=== PATIENT | female | born 1945 | race African-American/Black ===

== ENCOUNTER 2016-11-26 14:11 | Inpatient (IN) | payer OTHER ==
[~2016-11-26] VITALS: Ht 172.7 cm; Wt 79.4 kg
--- NOTE | ~2016-11-26 | P ---
[facility] [place] [address] PROCEDURE REPORT Name: ELI DAVIS Sonny Room #: 428-P [facility] ..#: [id number] Admission: 11/26/16 Attend Phys: Josey Doll MD Discharge: 11/28/16 Date of : 47 Report #: [id number] THIS REPORT FOR: //name// CC: Estephania Dubon DO Josey Doll MD DATE OF SERVICE: 11/26/2016 PROCEDURE PERFORMED: Upper endoscopy and PEG tube removal. HISTORY OF PRESENT ILLNESS: The patient is a 71-year-old female with a history of MS who currently has a PEG tube in place that has not been flushing correctly per her durable power of utility aide. She also had a diverting colostomy apparently for previous sacral decubitus ulcer. I spoke with the durable power of utility aide over the phone and she states that the patient has been using the PEG for nutrition, but has also been taking some nutrition by mouth; however, the PEG has not been working correctly, she believes it may be clogged. Plan is for EGD with possible PEG tube removal and replacement. DESCRIPTION OF PROCEDURE: The risks and benefits of the procedure were explained to the patient as well as her durable power of utility aide, those risks including but not limited to bleeding, perforation, the risk of sedation. They understood these risks and gave informed consent. The patient was given propofol per anesthesia. Next, using a standard Stkr.itinon upper endoscope, the scope was placed in the patient's mouth and advanced under direct vision through the esophagus, stomach and into the second portion of the duodenum. The esophagus was normal throughout. The GE junction was normal. Upon entering the stomach, there was no PEG tube bumper noted to be in place. This is despite PEG being noted exceeding the anterior abdominal wall. I could see where the PEG tube fistula was, it appears to be healing. There is no open area. This could be consistent likely with a buried bumper syndrome. The remaining gastric mucosa was normal. The pylorus was normal and patent. The duodenal bulb, first and second portion were normal. The scope was then brought back up into the patient's stomach and I removed the PEG through the anterior abdominal wall. There was some purulent type of drainage, no obvious fluctuance or abscess was noted again. There was no communication between the outside fistula tract with the gastric lumen endoscopically, again consistent with a buried bumper. At this point, the scope was then withdrawn and the procedure terminated. The patient tolerated the procedure well. IMPRESSION: 1. Buried bumper syndrome as described above, I explained to the patient and the durable power of utility aide that we would need to admit the patient, obtain a CT scan of the abdomen and pelvis to rule out the possibility of an abscess and [address] [address] PROCEDURE REPORT Name: SUSANELI A Room #: 428-P [facility] IN M.R.#: [id number] Admission: 11/26/16 Attend Phys: Josey Doll MD Discharge: 11/28/16 Date of : 47 Report #: [id number] we will also consult general surgery for further evaluation. I explained we will allow that site to heal and then later may need to replace with a new PEG tube at that time. Thank you for allowing me to participate in her care. <ELECTRONICALLY SIGNED> By: Darrion Mahmood MD 12/05/16 0824 0813 1125 Darrion Mahmood MD /nt
--- NOTE | ~2016-11-26 | P ---
[facility] [place] [address] PROCEDURE REPORT Name: SUSANELI Sonny Room #: 428-P [facility] IN ..#: [id number] Admission: 11/26/16 Attend Phys: Josey Doll MD Discharge: 11/28/16 Date of : 49 Report #: [id number] THIS REPORT FOR: //name// CC: VALERI Umana MD DATE OF SERVICE: 11/28/2016 PROCEDURE PERFORMED: Flexible sigmoidoscopy with biopsies. HISTORY OF PRESENT ILLNESS: The patient is a 71-year-old female who has a history of multiple sclerosis and actually had a diverting colostomy and PEG tube in place. Recently the PEG tube has not been flushing correctly per the durable power of litigation attorney, and therefore, plan is for upper endoscopy with possible PEG tube removal and replacement. I performed an upper endoscopy on 11/26/2016. Upon entering the stomach, it was obvious the PEG tube bumper was not within the lumen of the stomach and had migrated into the subcutaneous area consistent with a buried bumper. It appears that the fistula site has been healing well from the gastric lumen side. At that point, I pulled the PEG tube through the remaining fistula. There was some purulent drainage. There was no obvious significant fluctuance around the site. I discussed the findings with family and the patient and explained that she would need to be hospitalized and the next step was to obtain a surgery consultation as well as a CT scan of the abdomen, which was performed on 11/26/2016 and it showed marked interval worsening of the appearance of the rectosigmoid colon with marked thickening and irregular nodularity consistent with malignancy. The adjacent perirectal lymphadenopathy is noted with 2 hepatic masses consistent with metastatic disease. Abnormal appearance of the PEG tube site was noted with marginal subcutaneous fat stranding and adjacent skin thickening likely related to infection and cellulitis. A 2.5 cm gallstone was also noted. An intra-abdominal hernia was noted as well. Plan is for flexible sigmoidoscopy. DESCRIPTION OF PROCEDURE: The risks and benefits of the procedure were explained to the patient and her durable power of litigation attorney. Those risks including but not limited to bleeding, perforation, the risk of sedation. They understood these risks and gave informed consent. The patient was given propofol per anesthesia. Next, a digital rectal exam was performed, which was grossly abnormal. There was hard, firm mass noted in the distal rectum and into the anal canal. Next, using a standard Fujinon colonoscope, the scope was placed in the patient's rectum. There was a large malignant appearing ulcerative mass throughout the anal canal and distal rectum. I was not able to find the lumen. I did not want to push the scope any further. I was only able to advance the scope approximately 5 cm and 10 cm, multiple biopsies were obtained. This was consistent with malignancy. At this point, the scope was [address] [address] PROCEDURE REPORT Name: ELI DAVIS Room #: 428-P DIS IN M.R.#: [id number] Admission: 11/26/16 Attend Phys: Josey Doll MD Discharge: 11/28/16 Date of : 49 Report #: [id number] then withdrawn and I did pass the scope through the colostomy in the anterior abdominal wall. I was able to advance the scope to what appears about the transverse colon and there was a large amount of solid stool at this point. Therefore, I did not proceed any further. The scope was then withdrawn. A few diverticula were noted in the remaining descending colon, but otherwise normal. The scope was then withdrawn and the procedure terminated. The patient tolerated the procedure well. IMPRESSION: 1. 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 Biopsies were obtained. 2. Colostomy noted. Area of the transverse to descending colon was essentially normal other than a few diverticula. RECOMMENDATIONS: 1. Await biopsy results. 2. The patient apparently has an appointment already scheduled with Dr. Castle of colorectal surgery next week. We will await his evaluation and pathology report. Thank you for allowing me to participate in her care. <ELECTRONICALLY SIGNED> By: Darrion Mahmood MD 12/03/16 0757 1404 0011 Darrion Mahmood MD /nt
--- NOTE | ~2016-11-26 | S ---
[facility] [place] [address] SURGICAL PATH RPT PROCEDURE Name: PRISCILLA DAVIS Room #: 428-P [facility] IN M.R.#: [id number] Admission: 11/26/16 Date of : 49 Discharge: 11/28/16 Report #: [id number] Path Case #: [id number] PATHOLOGY REPORT COLLECTION DATE: 11/28/2016 RECEIVED DATE: 11/28/2016 SUBMITTING PHYS: Dr. Darrion Mahmood OTHER PHYS: Dr. Josey Dubon ADDENDUM REPORT (Order Date: 12/02/2016 11:02) ADDENDUM COMMENT: MSI (mismatch repair protein) immunohistochemical staining was performed on specimen #[id number] [facility]. Specimen: Formalin fixed paraffin embedded tissue Specimen ID: [id number] Reason for testing: To evaluate for evidence of defective mismatch repair proteins. Method: Immunohistochemical staining for the presence or absence of protein expression of one or more of the following MMR protein markers: MLH1, MSH2, MSH6 and PMS2. Tumor type: colonic adenocarcinoma Results: MLH1 - Preserved MSH2 - Preserved MSH6 - Preserved PMS2 - Preserved Mismatch Repair Status: MMR Proficient (MMR-P) Interpretation: (MMR-P) All four MMR proteins are preserved within tumor cells. This suggests the presence of normal DNA mismatch repair function within the tumor and an observable defect in mismatch repair is not identified. The likelihood that this patient has an inherited germline mutation syndrome due to defective mismatch repair is reduced but not totally eliminated. If the patient has a strong personal or family history of HPNCC/Morfin syndrome related cancers (colorectal, endometrial, gastric, ovarian, pancreatic, ureter/renal pelvis, biliary tract, brain, small bowel and [place]-Magdiel syndrome), consider MSI testing by PCR methodology. Suggest clinical correlation and follow up. These test results are designed for screening purposes only and are useful tools in identifying cancer patients that are more likely to have Morfin Syndrome related diagnoses. Tests should be interpreted in the context of clinical findings, family history and laboratory data. Abnormal IHC results for MMR protein expression are not considered diagnostic for Morfin Syndrome. Professional services performed by [employer], [employer] [place] [address] SURGICAL PATH RPT PROCEDURE Name: SUSANPRISCILLA A Room #: 428-P [facility] IN [facility]#: [id number] Admission: 11/26/16 Date of : 49 Discharge: 11/28/16 Report #: [id number] Path Case #: [id number] [place] [address]. ELECTRONICALLY SIGNED BY: Zion Joya M.D. DATE/TIME:12/02/2016 11:23 SPECIMEN(S) RECEIVED: A.Bxs rectal mass * * * * * * * * * * * * FINAL DIAGNOSIS: Colonic mucosa "rectal mass biopsy": - INVASIVE ULCERATED MODERATELY DIFFERENTIATED ADENOCARCINOMA. COMMENT: This case is also reviewed by Dr. Kirsten Castillo. This case was also discussed with Dr. Darrion Mahmood's on 12/01/16 at 1pm. MSI testing ordered on block A1. Once those are available additional report will follow. (SHA:abhijeet; d/t: 12/01/2016) PATHOLOGIST: Zion Joya M.D. REPORT ELECTRONICALLY SIGNED BY: Zion Joya M.D. DATE/TIME: 12/01/2016 13:09 * * * * * * * * * * * * GROSS PATHOLOGY: Received in formalin labeled "Priscilla Davis, biopsy rectal mass," are seven segments of avitia soft tissue measuring 1.0 x 0.9 x 0.1 cm in aggregate dimensions and ranging from 0.2 to 0.4 cm in maximum dimension. The specimen is submitted entirely in cassette A1. (CAA; 11/28/2016) CLINICAL HISTORY: Abnormal CT INITIAL CPT CODE(S): A; 85344, 87614, 76504, 10537, 23328 Professional services performed by [facility] [address], [place] [address] Technical services performed by [facility] at [address] [place] [address], [address] [address]. [facility] [address] [place] [address] SURGICAL PATH RPT PROCEDURE Name: PRISCILLA DAVIS Sonny Room #: 428-P [facility] IN M.R.#: [id number] Admission: 11/26/16 Date of : 49 Discharge: 11/28/16 Report #: [id number] Path Case #: [id number] [facility] [address] [place] [address] PHONE: [phone] DIRECTOR: Familia Grey M.D. * * * END OF REPORT * * *
[~2016-11-26 14:11] MED LIST changes: -AUGMENTIN 875875 MG PO; -COMPAZINE25 MG RECTAL; -PROBIOTIC1 EAC1 PO; -PROTONIX40 M1 PO; -TRAZODONE HCL50 MG PO
[2016-11-26 15:22] VITALS: BP 151/72
[2016-11-26] MEDS ORDERED: ONDANSETRON HCL4 M2 PO (16:05)
[2016-11-26] MEDS ORDERED: AMANTADINE100 M1 PO (16:06)
[2016-11-26] MEDS ORDERED: PROTONIX40 M1 PO (16:07)
[2016-11-26] MEDS ORDERED: COMPAZINE25 MG RECTAL (16:08)
[2016-11-26] MEDS ORDERED: TRAZODONE HCL50 MG PO (16:09)
[2016-11-26] MEDS ORDERED: APAP500 PO (16:10)
[2016-11-26 18:27] LABS: URINE BLOOD 3+ (Negative); URINE COLOR RED; URINE GLUCOSE-RANDOM* NEGATIVE (Negative); URINE KETONES TRACE (Negative); URINE LEUKOCYTES-REFLEX 3+ (Negative); URINE PROTEIN (DIPSTICK) 3+ (Negative)
[2016-11-26 18:44] LABS: ICTOTEST (BILI CONFIRMATORY) Negative (Negative); URINE BILIRUBIN NEGATIVE (Negative)
[2016-11-26 18:46] LABS: CASTS None Seen /LPF (None Seen); CRYSTALS None Seen /LPF (None Seen); SQUAMOUS 4-10 Moderate /LPF (0-3); URINE RBC >20 Many /HPF (0-2); URINE WBC-REFLEX >25 Many /HPF (0-5)
[2016-11-26 20:00] VITALS: BP 182/98
[2016-11-27 04:30] VITALS: BP 140/66
[2016-11-27 06:56] LABS: ABSOLUTE NEUTROPHILS 6.1 thou/uL (1.4-8.2); BASOPHILS 0.9 % (0.0-2.0); EOSINOPHILS 2.8 % (0.0-3.0); HEMATOCRIT 32.4 % (37.0-47.0); HEMOGLOBIN 10.2 gm/dL (12.0-15.0); LYMPHOCYTES 23.7 % (24.0-44.0); MCH 20.8 pg (26.0-34.0); MCHC 31.5 % (28.0-37.0); MCV 65.8 fL (80.0-100.0); MONOCYTES 8.6 % (1.0-8.0); PLATELET COUNT 263 thou/uL (150-400); RBC 4.92 mil/uL (4.20-5.00); RDW 16.7 % (10.5-14.5); WBC 9.4 thou/uL (4.0-11.0)
[2016-11-27 06:59] LABS: CALCIUM 8.6 mg/dL (8.5-10.1); CREATININE 0.7 mg/dL (0.6-1.3); POTASSIUM 3.5 mmol/L (3.5-5.1)
[2016-11-27 07:13] LABS: MANUAL DIFF NO
[2016-11-27 07:33] VITALS: BP 142/73
[2016-11-27 08:17] LABS: ANISOCYTOSIS 1+; HYPOCHROMASIA 2+; MICROCYTES 2+; PLATELET ESTIMATE NORMAL
[2016-11-27 08:19] LABS: OVALOCYTES 1+; POIKILOCYTOSIS 1+
[2016-11-27 08:20] LABS: LARGE PLATELETS OCCASIONAL
[2016-11-27 15:33] VITALS: BP 148/67
[2016-11-27 20:00] VITALS: BP 151/68
[2016-11-28 01:08] LABS: FERRITIN 58 ng/mL (15-150)
[2016-11-28 04:00] VITALS: BP 136/71
[2016-11-28 05:16] LABS: HEMATOCRIT 32.4 % (37.0-47.0); MCH 20.7 pg (26.0-34.0); MCHC 30.8 % (28.0-37.0); MCV 67.1 fL (80.0-100.0); RBC 4.83 mil/uL (4.20-5.00)
[2016-11-28 05:52] LABS: CALCIUM 8.6 mg/dL (8.5-10.1); CREATININE 0.6 mg/dL (0.6-1.3); POTASSIUM 3.6 mmol/L (3.5-5.1)
[2016-11-28 08:36] VITALS: BP 135/78
[2016-11-28 12:09] LABS: % SATURATION 15 % (15-55); IRON 36 ug/dL (27-139); TIBC 233 ug/dL (250-450); UIBC 197 ug/dL (118-369)
[2016-11-28] MEDS ORDERED: AUGMENTIN 875875 MG PO (12:33)
[2016-11-28] MEDS ORDERED: PROBIOTIC1 EAC1 PO (12:33)
== END 2016-11-28 18:43 | DRG 394 ==
LOC: 4E 14:11
PROVIDERS: Family Medicine; Nurse Practitioner Adult Health
PROC: 0D20XUZ Change Feeding Device in Upper Intestinal Tract, External Approach (ICD-10-PCS; principal; 2016-11-28)
PROC: 0DBP8ZX Excision of Rectum, Via Natural or Artificial Opening Endoscopic, Diagnostic (ICD-10-PCS; principal; 2016-11-28)
DX: K94.23 Gastrostomy malfunction (principal); N39.0 Urinary tract infection, site not specified; E11.9 Type 2 diabetes mellitus without complications; G35 Multiple sclerosis; I10 Essential (primary) hypertension; K21.9 Gastro-esophageal reflux disease without esophagitis; K59.09 Other constipation; F31.9 Bipolar disorder, unspecified; M81.0 Age-related osteoporosis without current pathological fracture; K62.9 Disease of anus and rectum, unspecified; E78.5 Hyperlipidemia, unspecified; G47.00 Insomnia, unspecified; D50.9 Iron deficiency anemia, unspecified; M19.90 Unspecified osteoarthritis, unspecified site; N32.9 Bladder disorder, unspecified; Z79.4 Long term (current) use of insulin; Z88.6 Allergy status to analgesic agent; Z88.1 Allergy status to other antibiotic agents; Z90.710 Acquired absence of both cervix and uterus
CPT/HCPCS: 10783; 62110; 70005

== ENCOUNTER → 2016-11-26 | Outpatient (CLI) | payer OTHER ==
[~2016-11-26] MED LIST: ADULT TUSS100 MG/5 M PO; AMANTADINE 100100 MG PO; AMANTADINE100 M1 PO; AMLODIPINE BESYL5 MG PO; APAP500 PO; ATIVAN0.5 MG PO; AUGMENTIN 875875 MG PO; BENZONATATE200 MG PO; BISACODYL SUPP10 MG RECTAL; CEFTIN 250 MG250 MG PO; CHLOROPHYLL 3 MG3 MG PO; CIPRO500 MG PO; COMPAZINE25 MG RECTAL; DIPHENHYDRAM50 MG/M2 IV PUSH; DOCUSATE SODIU100 MG PO; ENDOCET 5-3251 EACH PO; FENTANYL PA50 MCG/HR TRANSDERM; GLUCERNA 1.21500 ML PO; GLYCOLAX POWDER17 G1 PO; HYDROCHLOROTHIA25 M2 PO; LIORESAL 10 MG10 MG PO; LISINOPRIL20 MG PO; LUNESTA2 MG PO; MAGNESIUM CITR296 ML PO; MELATONIN3 MG PO; MIRALAX17 GM PO; MUCINEX TA600 MG/TA1 PO; MULTI VITAMIN1 EACH PO; NORCO 5-325 TA1 EACH PO; NORVASC10 MG PO; NORVASC5 M1 PO; NOVOLOG100 UNIT/1 SUBQ; OMEPRAZOLE 20 M20 M1 PO; ONDANSETRON HCL4 M2 PO; OPANA ER10 M1 PO; OXCARBAZEPINE300 M1 PO; OXYBUTYNIN 5 MG5 M2 PO; POTASSIUM20 PO; PRAVACHOL 20 MG20 M1 PO; PRILOSEC 20 MG20 MG PO; PROBIOTIC1 EAC1 PO; PROSOURCE PLUS946 ML PO; PROTONIX40 M1 PO; RESTORIL15 MG PO; TOVIAZ4 M1 PO; TRAMADOL 50 MG50 MG PO; TRAZODONE HCL50 MG PO; TYLENOL325 MG PO; VITAMIN D1000 UNI1 PO; VITAMIN D3400 UNIT PO; VITAMINC500 PO; [UNRECOGNIZED DRUG - OTHER] PO
--- NOTE | ~2016-11-26 | HC ---
[facility] [place] [address] CONSULTATION Name: SUSANELI A Room #: REG [facility]#: [id number] Admission: 11/26/16 Attend Phys: Darrion Rankin Discharge: Date of : 49 Report #: [id number] THIS REPORT FOR: //name// CC: Darrion Dubon DATE OF SERVICE: 11/26/2016 CHIEF COMPLAINT: Displaced PEG tube. HISTORY OF PRESENT ILLNESS: The patient is a 71-year-old female with extensive past medical history of multiple sclerosis, diabetes mellitus, bipolar disorder, chronic constipation and other medical issues. She was seen by myself approximately one year ago in consultation as an inpatient at [facility] regarding a large sacral pressure ulcer. She underwent operative debridement of this wound by myself as well as PEG placement and loop transverse colostomy. Since that time, the patient was seen and evaluated in the emergency department on several occasions, although general surgery was not called unfortunately. She has had recurrent urinary tract infections during that time. She has been a intermediate facility resident with primary care physician, Dr. Dubon. In 05/2016, she had undergone a CT scan of the abdomen and pelvis without contrast that showed soft tissue prominence in the rectal region. There was also noted to be a large amount of stool in the proximal colon as well as a large umbilical hernia. Per verbal report, the patient was evaluated by gynecology at some point recently for presumed vaginal bleeding. Upon their evaluation, they felt that the bleeding was likely from the rectum, and therefore, she was referred to colorectal surgery associates. She had an upcoming appointment actually on 12/04 with colorectal surgery. More recently, over the past 1-2 weeks, her PEG tube was noted to be poorly functional. Her nocturnal tube feeds had been held over the past 10 days as she had complained of some pain at the PEG tube site. Although the patient has been tolerating regular diet well, she has been supplemented with nocturnal tube feeds. The patient was brought as an outpatient yesterday for EGD with evaluation of the PEG tube by gastroenterology. Upon EGD, it was noted that the PEG tube had been pulled out of the stomach and the gastric side of the tract had closed off completely as visualized from within the gastric lumen. She, therefore, was admitted to internal medicine service. The PEG tube had been discontinued at the time of that EGD. CT scan of the abdomen and pelvis with oral and IV contrast was obtained to evaluate for potential gastric leak or abscess from the tube feeds which apparently had been extra gastric. CT scan showed that the PEG tube had been removed. It did show subcutaneous fat stranding around the soft tissue overlying the stomach. There was thickening and inflammation in the skin and soft tissue, consistent with cellulitis and infection. No obvious was identified. Radiologic read describes a large ventral hernia. However, this is her transverse loop colostomy which may have some parastomal herniation. No incarceration or [address] [address] CONSULTATION Name: ELI DAVIS Room #: REG [facility]#: [id number] Admission: 11/26/16 Attend Phys: Darrion Rankin Discharge: Date of : 49 Report #: [id number] obstruction is noted, however. Thickening and irregularity of the rectosigmoid was noted with multiple enlarged perirectal lymph nodes measuring up to 1.6 cm in diameter. These appear increased from prior study. There was also noted to be circumferential bladder wall thickening with irregularity and nodularity as well as focal lobular hyperdensity along the right posterior bladder wall, measuring 12 x 17 x 18 mm. There is also a 3-mm calcification along that right posterior lateral bladder wall. No obvious ureteral obstruction was noted. Post-hysterectomy changes were noted. There were 2 low-attenuating lesions within the right and left liver, measuring approximately 1 cm in diameter, concerning for metastatic process; large gallstone measuring 2.5 cm. No obvious cholecystitis. At this time, the patient reports that the pain at her PEG tube site is significantly improved. She is a difficult historian and unfortunately, her DPOA is not present today to provide further history. She has been tolerating regular diet while inpatient. She has been afebrile. Also, of note, her urinalysis yesterday showed positive nitrite, 3+ leukocytes, 4-10 squamous cells, greater than 25 WBCs and greater than 30 bacteria. Her white blood cell count was 12.1 thousand, hemoglobin 11.3 and platelets of 267,000 upon admission yesterday. White count is normalized today at 9.4. PAST MEDICAL HISTORY: Positive for multiple sclerosis, diabetes mellitus, hypertension, previous sacral decubitus ulcer which has healed, osteoporosis, gastroesophageal reflux disease, frequent urinary tract infections, chronic constipation, overactive bladder, vitamin D deficiency and chronic insomnia. PAST SURGICAL HISTORY: Hysterectomy, diverting loop colostomy in 12/2015, PEG tube placed in 12/2015 and hernia repair of some type is listed in her history, although the exact location and type of this hernia repair is unclear. ALLERGIES: Include MORPHINE and KEFLEX. CURRENT MEDICATIONS: Include melatonin, amlodipine, baclofen, tramadol, Glucerna tube feeds at night, fentanyl patch, multivitamin, calcium, vitamin D supplement, acetaminophen, trazodone, prochlorperazine, pantoprazole, Amantadine and Zofran. SOCIAL HISTORY: Negative for tobacco, ETOH or drug use. The patient lives in a intermediate facility, does have a DPOA given her chronic debility and bipolar disorder. She is unable to make medical decisions on her own. REVIEW OF SYSTEMS: GENERAL: Negative for fevers or chills. No decreased appetite. HEENT: No headache or epistaxis. CARDIOVASCULAR: No chest pain or palpitations. PULMONARY: No productive cough. No shortness of breath. GASTROINTESTINAL: Positive for abdominal pain at the PEG site as well as possible blood per rectum. Colostomy noted to be functional, without obvious [address] [address] CONSULTATION Name: SUSANELI A Room #: REG [facility]#: [id number] Admission: 11/26/16 Attend Phys: Darrion Rankin Discharge: Date of : 49 Report #: [id number] constipation. MUSCULOSKELETAL: No back pain. No joint swelling. NEUROLOGIC: No focal tingling or numbness. CUTANEOUS: Healed sacral ulcer. No new rashes or lesions. ENDOCRINE: Positive for diabetes mellitus. No heat or cold intolerance. HEMATOLOGIC: No spontaneous epistaxis or easy bruising. PHYSICAL EXAMINATION: GENERAL: On exam, the patient is awake and in no acute distress. She is eating breakfast on this examination and tolerating this well. She is in good spirits. She reports that her pain is much improved now that the PEG tube has been removed. HEENT: Head is atraumatic and normocephalic. Pupils are equally round and reactive to light. Oral cavity shows mucosae are pink and moist. No icterus is appreciated. NECK: Supple, without lymphadenopathy. LUNGS: Clear to auscultation. HEART: Regular, without murmur. ABDOMEN: Soft and minimally tender to palpation in the left upper quadrant at the previous PEG site. This has been removed and is covered with a dressing. No active drainage is expressible from the site. No crepitus is appreciated in the midline. Her diverting loop colostomy is functional. There is some mild prolapse which is easily reducible. Stoma is patent. Abdomen shows no rebound or guarding. No peritoneal signs are appreciated. EXTREMITIES: Without clubbing, cyanosis or edema. Normal mood and affect is noted. No focal neurologic deficits. IMPRESSION: 1. 71-year-old female with extensive past medical history including multiple sclerosis and bipolar disorder with chronic debility. The patient previously had undergone diverting colostomy with PEG tube placement for a large sacral decubitus ulcer approximately one year ago. The ulcer has since healed. More recently, the PEG tube became dislodged and was nonfunctional. This was discontinued yesterday during EGD by gastroenterology service. Within the gastric lumen, the PEG site had closed. CT scan with oral and IV contrast showed no obvious abscess or gastric leak. However, it does appear that there is cellulitis in the skin and soft tissue overlying the PEG site. 2. Rectal mass, with rectal wall thickening, circumferential bladder wall thickening, as well as irregularity and nodularity of the bladder with an area of calcification. Also concerning for potential malignancy. Unclear whether this would be an extension from the rectal site. Lymphadenopathy in this region is also noted as well as 2 lesions noted within the liver, which are concerning for malignant process. Urinary tract infection noted, although no sign of sepsis or septic shock at this time. RECOMMENDATIONS: 1. Regarding PEG tube, no plan for replacement of PEG at this time. The patient does tolerate a regular diet well, and at this point, there appears to be cellulitis in the skin and soft tissue overlying the previous PEG site. Agree with antibiotic coverage for 7-10 days until this has completely resolved. 2. Flexible sigmoidoscopy versus colonoscopy per gastroenterology to better evaluate the rectal wall and potentially obtain a tissue diagnosis. 3. Continue with antibiotic coverage regarding severe urinary tract infection. May require further imaging to better delineate the [facility] [place] [address] CONSULTATION Name: ELI DAVIS Sonny Room #: REG Kurt Mo.#: [id number] Admission: 11/26/16 Attend Phys: Darrion Rankin Discharge: Date of : 49 Report #: [id number] associated between the rectal wall and the bladder. 4. We will coordinate with colorectal surgeon to whom the patient was already referred regarding further potential evaluation and management. Consultation very much appreciated. Will continue to follow closely and make further recommendations based upon clinical status and further investigative findings. Greater than one hour was utilized reviewing the patient's medical records, CT scans, operative reports, evaluating the patient, and discussing the case with various members of the medical team. <ELECTRONICALLY SIGNED> By: Jared Lima MD 11/28/16 1323 1626 0250 Jared Lima MD /nt
--- NOTE | ~2016-11-26 | P ---
[facility] [place] [address] PROCEDURE REPORT Name: SUSANELI Sonny Room #: REG [facility]#: [id number] Admission: 11/26/16 Attend Phys: Darrion Rankin Discharge: Date of : 47 Report #: [id number] THIS REPORT FOR: //name// CC: Darrion Mahmood Estephania Dubon DO DATE OF SERVICE: 11/26/2016 PROCEDURE PERFORMED: Upper endoscopy. HISTORY OF PRESENT ILLNESS: The patient is a 71-year-old female with a history of multiple sclerosis, who has a PEG tube in place as well as a diverting colostomy. Apparently, the PEG tube has not been working well. Initially, the patient told me that she wanted the tube removed because of abdominal pain and that she is able to tolerate diet p.o. without any difficulty. However, in speaking with her durable power of transactional attorney, she states that she does not want tube removed, however, she would like a new one placed as the tube has not been working properly and she is still using the tube for nutrition; therefore, plan is for EGD with PEG removal and replacement. DESCRIPTION OF PROCEDURE: The risks and benefits of the procedure were explained to per patient's durable power of transactional attorney, those risks including but not limited to bleeding, perforation and the risk of sedation. She understood these risks and gave informed consent. Sedation was given using propofol per anesthesia. Next, using a standard DynamicOpsinon upper endoscope, the scope was placed in the patient's mouth and advanced under direct vision through the esophagus, stomach and into the second portion of the duodenum. The esophagus was normal throughout. The GE junction was normal. The scope was then advanced into the stomach. The PEG tube site was noted; however, this was healed and there was no evidence of the bumper in the lumen of the stomach. The PEG on the outside was still intact thus this is consistent with a buried bumper. Overall the gastric mucosa was normal. I did not see an opening where the PEG tube fistula site was, it appears to be healed. The pylorus was normal and patent. The duodenal bulb, first and second portion were all normal. The scope was then brought back over the patient's stomach and I removed the PEG tube without difficulty. There was some purulent type drainage after the PEG was removed. At this point again, there was no evidence of communication from the gastric lumen to the previous PEG fistula. At this point, the scope was then withdrawn and the procedure terminated. The patient tolerated the procedure well. 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 The patient will need to be admitted. We will obtain a CT scan of the abdomen. We will also consult general surgery as the wound may need to be packed or opened and then a new PEG would need to be replaced at a later date. [address] [address] PROCEDURE REPORT Name: ELI DAVIS Room #: REG [facility]#: [id number] Admission: 11/26/16 Attend Phys: Darrion Rankin Discharge: Date of : 47 Report #: [id number] Thank you for allowing me to participate in her care. <ELECTRONICALLY SIGNED> By: Darrion Mahmood MD 11/28/16 1047 1250 1803 Darrion Mahmood MD /nt
[2016-11-26 13:38] LABS: ABSOLUTE NEUTROPHILS 7.6 thou/uL (1.4-8.2); BASOPHILS 0.9 % (0.0-2.0); EOSINOPHILS 3.3 % (0.0-3.0); HEMATOCRIT 37.1 % (37.0-47.0); HEMOGLOBIN 11.3 gm/dL (12.0-15.0); LYMPHOCYTES 22.6 % (24.0-44.0); MCH 20.3 pg (26.0-34.0); MCHC 30.4 % (28.0-37.0); MCV 66.9 fL (80.0-100.0); MONOCYTES 10.6 % (1.0-8.0); POLYS 62.6 % (36.0-66.0); RBC 5.54 mil/uL (4.20-5.00); WBC 12.1 thou/uL (4.0-11.0)
[2016-11-26 13:42] LABS: MANUAL DIFF NO
[2016-11-26 13:56] LABS: ALBUMIN 3.6 g/dL (3.4-5.0); CALCIUM 9.1 mg/dL (8.5-10.1); CREATININE 0.7 mg/dL (0.6-1.3); TOTAL BILIRUBIN 0.7 mg/dL (<0.1-1.0); TOTAL PROTEIN 7.3 g/dL (6.4-8.2)
[2016-11-26 14:04] LABS: ANISOCYTOSIS 1+; HYPOCHROMASIA 1+; PLATELET COUNT 267 thou/uL (150-400)
== END ==
LOC: GI 09:43
PROVIDERS: Specialist
DX: K94.23 Gastrostomy malfunction (principal); I10 Essential (primary) hypertension; E11.9 Type 2 diabetes mellitus without complications; G35 Multiple sclerosis; M81.0 Age-related osteoporosis without current pathological fracture; K21.9 Gastro-esophageal reflux disease without esophagitis; N32.81 Overactive bladder; Z87.440 Personal history of urinary (tract) infections; Z90.710 Acquired absence of both cervix and uterus
CPT/HCPCS: 62110